=== PATIENT | female | born 1970 | race African-American/Black ===

== ENCOUNTER 2017-08-26 16:27 | Emergency (ER) | payer SELFPAY ==
[~2017-08-26] VITALS: Ht 160 cm; Wt 79.4 kg
--- NOTE | 2017-08-26 16:35 | NUR ---
AAOX3, BB FAMILY: VERTIGO, NAUSEA, VOMITING, ACID REFLUX x 45 MIN [employer]. RR IS EVEN AND UNLABORED WITH NAD NOTED. WORSE WHEN LIGHTS ARE ON. SKIN IS WARM AND DRY. PLACED ON THE MONITOR. AWAITING MD FOR EVAL.
[2017-08-26] MEDS ORDERED: MECLIZINE HCL 25 MG TABLET ONE (17:28)
[2017-08-26] MEDS ORDERED: ONDANSETRON HCL/PF 4 MG/2 ML VIAL ONE (17:28)
[2017-08-26] MEDS ORDERED: LORAZEPAM INJ 2 MG/ML VIAL ONE (17:29)
[2017-08-26] MEDS ORDERED: MECLIZINE HCL 12.5 MG TABLET PO ONE (17:30)
[2017-08-26] MEDS ORDERED: ONDANSETRON HCL/PF 4 MG/2 ML VIAL IV ONE (17:30)
[2017-08-26] MEDS ORDERED: LORAZEPAM INJ 2 MG/ML VIAL IV ONE (17:30)
[2017-08-26 17:45] LABS: BASOPHILS # (AUTO) 0.1 /CMM (0.0-0.2); BASOPHILS % (AUTO) 1.6 % (0.0-2.0); EOSINOPHILS # (AUTO) 0.2 /CMM (0.0-0.7); EOSINOPHILS % (AUTO) 2.4 % (0.0-6.0); HEMATOCRIT 35 % (33-45); HEMOGLOBIN 11.4 g/dL (11.5-14.8); LYMPHOCYTES # (AUTO) 1.9 /CMM (0.8-4.8); LYMPHOCYTES % (AUTO) 20.1 % (20.0-44.0); MEAN CORPUSCULAR HEMOGLOBIN 26 PG (26.0-33.0); MEAN CORPUSCULAR HGB CONC 33 g/dl (31.0-36.0); MEAN CORPUSCULAR VOLUME 79 fL (82-100); MONOCYTES # (AUTO) 0.5 /CMM (0.1-1.30); MONOCYTES % (AUTO) 5.3 % (2.0-12.0); NEUTROPHILS # (AUTO) 6.6 /CMM (1.8-8.9); NEUTROPHILS % (AUTO) 70.6 % (43.0-81.0); PLATELET COUNT (AUTO) 298 /CMM (150-450); RDW COEFFICIENT OF VARIATION 15.1 (11.5-15.0); RED BLOOD CELL COUNT(AUTO) 4.41 MIL/uL (4.0-5.2); WHITE BLOOD COUNT (AUTO) 9.3 K/uL (4.3-11.0)
[2017-08-26 18:03] LABS: CALCIUM, SERUM 8.8 mg/dL (8.5-10.1); CARBON DIOXIDE 27 mmol/L (21-32); CHLORIDE 105 mmol/L (98-107); CREATININE 1.5 mg/dL (0.6-1.3); GLUCOSE 91 mg/dL (74-106); SODIUM SERUM 140 mmol/L (136-145); UREA NITROGEN, BLOOD 20 mg/dL (7-18)
--- NOTE | 2017-08-26 18:06 | NUR ---
PATIENT CAME BACK FROM CT, REMAINS IN STABLE CONDITION AT THIS TIME.
[2017-08-26 18:13] LABS: TROPONIN I < 0.017 ng/mL (0.00-0.056)
[2017-08-26 18:17] LABS: INR 0.92 (0.85-1.15)
--- NOTE | 2017-08-26 18:55 | NUR ---
DR HANLEY AT FOR AN UPDATE AND RE-EVAL.
--- NOTE | 2017-08-26 19:20 | NUR ---
IV removed. Catheter intact and site benign. Pressure and 4x4 applied to site. No bleeding noted. Patient discharged to home in stable condition. Written and verbal after care instructions given. Patient verbalizes understanding of instruction. advice pt not to drive or operate any machinery due to pt was given anrcotic medicine. pt verbalize understanding. pt family member at bedside to take pt home.
== END 2017-08-26 19:22 | disposition home or self-care (01) ==
LOC: ER 16:30
DX: R42 Dizziness and giddiness (principal); R11.2 Nausea with vomiting, unspecified; Z86.711 Personal history of pulmonary embolism
CPT/HCPCS: 36415; 70450; 71045; 80048; 84484; 85025; 85730; 93005; 96374; 96375; 99285; A4606; J2060; J2405; J8597; Z7610